=== PATIENT | male | born 1970 | race Two or more races ===

== ENCOUNTER 2024-03-18 21:13 | Emergency (ER) | payer OTHER ==
[~2024-03-18] VITALS: Ht 170.2 cm; Wt 90.7 kg
[2024-03-18] MEDS ORDERED: JANTOVEN4 MG PO (21:19)
[2024-03-18] MEDS ORDERED: JANTOVEN5 MG PO (21:19)
[2024-03-18] MEDS ORDERED: DEXAMETHASONE SODIUM PHOSPHATE 4 MG/ML VIAL IM STA (21:48)
[2024-03-18] MEDS ORDERED: ORPHENADRINE CITRATE 30 MG/ML AMPUL IM STA (21:48)
[2024-03-18] MEDS ORDERED: DICLOFENAC POTA50 MG PO (22:49)
[2024-03-18] MEDS ORDERED: GABAPENTIN100 M2 PO (22:49)
[2024-03-18] MEDS ORDERED: ZANAFLEX4 M1 PO (22:49)
== END 2024-03-18 23:02 | disposition home or self-care (01) ==
LOC: ER 21:15
DX: M54.32 Sciatica, left side (principal)

== ENCOUNTER 2024-05-31 07:32 | Outpatient (CLI) | payer OTHER ==
[~2024-05-31 07:32] MED LIST: DICLOFENAC POTA50 MG PO; GABAPENTIN100 M2 PO; JANTOVEN4 MG PO; JANTOVEN5 MG PO; ZANAFLEX4 M1 PO
[2024-05-31 08:45] LABS: PH,URINE 5.5 (5.0-8.0); URINE APPEARANCE Clear; URINE BILIRRUBIN Negative (NEGATIVE); URINE BLOOD Negative; URINE COLOR Yellow; URINE GLUCOSE Negative (NEGATIVE); URINE KETONE Negative (NEGATIVE); URINE LEUKOCYTE Negative; URINE NITRATE Negative; URINE PROTEIN Negative (NEGATIVE); URINE UROBILINOGEN 0.2 E.U./dl
[2024-05-31 08:49] LABS: URINE BACTERIA 6.1 uL (0.0-1933); URINE RBC 6.4 uL (0.0-20.8)
[2024-05-31 08:51] LABS: URINE EPITHELIAL CELLS 0.7 uL (0.0-38.8); URINE WBC 1.2 uL (0.0-23.2)
[2024-05-31 09:17] LABS: INR 2.24
[2024-05-31 09:31] LABS: ALBUMIN 3.9 gm/dL (3.4-5.0); BILIRUBIN TOTAL 0.52 mg/dL (0.3-1.2); CHOL HDL RATIO 2.7 (0-5.0); CREATININE SERUM 0.86 mg/dL (0.70-1.30); GFR 93.75; GLOBULINA 3.5 G/DL (2.4-3.5); POTASSIUM 4.54 mEq/L (3.5-5.1); TOTAL PROTEIN 7.4 gm/dL (6.4-8.2); TSH 0.997 uIU/mL (0.358-3.74)
[2024-05-31 09:36] LABS: PARTIAL THROMBOPLASTIN TIME 38.2 SECONDS (22.0-34.0)
[2024-05-31 09:38] LABS: HEMATOCRIT 41.6 % (39.0-48.0); HEMOGLOBIN 14.1 g/dL (13-16.00); MEAN CELL VOLUME 83.7 fL (80.0-100.00); MEAN CORPUSCULAR HEMOGLOBIN 28.5 pg (27.00-32.0); PLATELET COUNT 275 K/uL (150-450); RED BLOOD COUNT 4.97 M/uL (4.00-6.00); RED CELL DISTRIBUTION WIDTH 13.7 % (11.5-14.5)
== END 2024-05-31 07:39 | disposition home or self-care (01) ==
LOC: LAB 07:32
DX: E66.01 Morbid (severe) obesity due to excess calories (principal); R42 Dizziness and giddiness; R94.31 Abnormal electrocardiogram [ECG] [EKG]; Z13.6 Encounter for screening for cardiovascular disorders; Z13.1 Encounter for screening for diabetes mellitus; Z95.2 Presence of prosthetic heart valve; Q60.2 Renal agenesis, unspecified; Z79.01 Long term (current) use of anticoagulants

== ENCOUNTER 2024-07-05 08:04 | Outpatient (CLI) | payer OTHER ==
[2024-07-05 09:14] LABS: INR 2.7
[2024-07-05 09:28] LABS: PARTIAL THROMBOPLASTIN TIME 39.8 SECONDS (22.0-34.0); PROTHROMBIN TIME 27.3 SECONDS (9.0-11.5)
[2024-07-05 09:30] LABS: CALCIUM 9.3 mg/dL (8.5-10.1); CREATININE SERUM 0.85 mg/dL (0.70-1.30); GFR 95.03; POTASSIUM 4.52 mEq/L (3.5-5.1)
== END 2024-07-05 08:06 | disposition home or self-care (01) ==
LOC: LAB 08:04
DX: Z95.2 Presence of prosthetic heart valve (principal); R94.31 Abnormal electrocardiogram [ECG] [EKG]

== ENCOUNTER 2024-10-27 10:49 | Outpatient (CLI) | payer OTHER ==
[2024-10-27 11:42] LABS: INR 2.86
[2024-10-27] MEDS ORDERED: CHILDREN'S ASPI81 MG (11:42)
[2024-10-27] MEDS ORDERED: NORFLEX100MG PO (13:59)
== END 2024-10-27 10:54 | disposition home or self-care (01) ==
LOC: LAB 10:49
DX: Z95.2 Presence of prosthetic heart valve (principal); Z79.01 Long term (current) use of anticoagulants

== ENCOUNTER 2024-10-27 11:26 | Emergency (ER) | payer OTHER ==
[~2024-10-27] VITALS: Ht 170.2 cm; Wt 88.9 kg
[2024-10-27] MEDS ORDERED: CHILDREN'S ASPI81 MG (11:42)
[2024-10-27] MEDS ORDERED: KETOROLAC TROMETHAMINE 60 MG VIAL IM ONE (12:00)
[2024-10-27] MEDS ORDERED: NORFLEX100MG PO (13:59)
== END 2024-10-27 14:17 | disposition home or self-care (01) ==
LOC: ER 11:26
DX: M25.561 Pain in right knee (principal)